=== PATIENT | male | born 1945 | race Caucasian/White ===

== ENCOUNTER 2016-09-08 15:08 | Emergency (ER) | payer MEDICARE, BC ==
[~2016-09-08] VITALS: Ht 175.3 cm; Wt 86.0 kg
[~2016-09-08 15:08] MED LIST: ESCI20TA PO; LAMO25TA PO; OXYC-392 PO; PERC7.5T13 PO; QUET1TAB7 PO; ROPI8TAB PO
[2016-09-08 15:14] VITALS: BP 130/97; PULSE 104; RESP 16; TEMP 97.5; O2SAT 96
[2016-09-08] MEDS ORDERED: OXYC-432 PO (16:04)
[2016-09-08] MEDS ORDERED: METH4TAB6 PO (16:04)
--- NOTE | 2016-09-08 16:13 | PD ---
HPI Chief Complaint: Musculoskeletal Complaint Time Seen by Provider: 16:13 Travel History International Travel<30 days: No Contact w/Intl Traveler<30days: No Traveled to known affect area: No History of Present Illness HPI 71-year-old male presents to emergency Department with back pain with radicular symptoms in the left upper leg. Patient recently underwent back surgery with discectomy performed, and prescription for methylprednisone and oxycodone 5/325. Patient states he ran out of both meds 2 days ago and has had increasing symptoms. He is unable to see his orthopedic surgeon until Saturday. He is requesting refills just for the weekend until he can get in with his orthopedic surgeon. Patient describes it as a burning pain into the left lateral thigh consistent with his previous history. His pain is 3/10 currently. Patient is allergic to penicillin. PFSH Past Medical History Anxiety: Yes Depression: Yes Diminished Hearing: No Insomnia: Yes Musculoskeletal: Yes (OLD BACK INJURY ) Respiratory: Yes (ASBESTOS BUMPS IN LUNGS PER PT) Tetanus Vaccination: < 5 Years Influenza Vaccination: Yes ?: Not Social History Alcohol Use: No (quit) Tobacco Use: No (QUIT 1976) Substance Use: No Allergies-Medications (Allergen,Severity, Reaction): Coded Allergies: Penicillin (Verified Allergy, Mild, 09/08/16) Reported Meds & Prescriptions Reported Meds & Active Scripts Active Reported Methylprednisolone 4 Mg Tab 0 PO DAILY Oxycodone-Acetaminophen 5-325 mg Tab 1 Tab PO Q6H PRN Escitalopram (Escitalopram Oxalate) 20 Mg Tab 20 Mg PO DAILY Quetiapine (Quetiapine Fumarate) 25 Mg Tab 25 Mg PO HS Lamotrigine 25 Mg Tab 75 Mg PO BID Ropinirole ER 8 Mg Tab 16 Mg PO DAILY Review of Systems Except as stated in HPI: all other systems reviewed are Neg General / Constitutional: No: Fever Eyes: No: Visual changes HENT: No: Headaches Cardiovascular: No: Chest Pain or Discomfort Respiratory: No: Shortness of Breath Gastrointestinal: No: Abdominal Pain Genitourinary: No: Dysuria Musculoskeletal: Positive: Pain Skin: No Rash Neurologic: No: Weakness Psychiatric: No: Depression Endocrine: No: Polydipsia Hematologic/Lymphatic: No: Easy Bruising Physical Exam Narrative GENERAL: Patient appears in mild distress. SKIN: Warm and dry. Normal color. Normal turgor. Well healed incision site to the L1-L2 region. HEAD: Atraumatic. Normocephalic. EYES: Pupils equal and round. No scleral icterus. No injection or drainage. ENT: No nasal bleeding or discharge. Mucous membranes pink and moist. Pharynx is clear. NECK: Trachea midline. No JVD. Neck is supple and nontender. CARDIOVASCULAR: Regular rate and rhythm. RESPIRATORY: No accessory muscle use. Clear to auscultation. Breath sounds equal bilaterally. MUSCULOSKELETAL: Extremities without clubbing, cyanosis, or edema. No obvious deformities. Patient has tenderness with palpation along the left lumbar region. Negative straight leg raise pain at this time. NEUROLOGICAL: Awake and alert. No obvious cranial nerve deficits. Motor grossly within normal limits. Five out of 5 muscle strength in the arms and legs. Normal speech. PSYCHIATRIC: Appropriate mood and affect; insight and judgment normal. Data Data Last Documented VS Vital Signs Date Time Temp Pulse Resp B/P Pulse Ox O2 Delivery O2 Flow Rate FiO2 09/08/16 15:14 97.5 104 16 130/97 96 MDM Medical Decision Making Medical Screen Exam Complete: Yes Emergency Medical Condition: Yes Differential Diagnosis Lumbago. Sciatica. Low back pain. Narrative Course Patient is medically stable at time of exam. Patient is discussed with Dr. Loja. Patient is given a prescription for prednisone 20 mg twice a day 5 days. Patient is given a refill of his Percocet 5/325 one every 6 hours #12. Patient is to follow-up with his neurosurgeon/orthopedist on Saturday as discussed. Diagnosis Primary Impression: Back pain with left-sided radiculopathy Patient Instructions: General Instructions Additional Instructions: Patient is given a prescription for prednisone 20 mg twice a day 5 days. Patient is given a refill of his Percocet 5/325 one every 6 hours #12. Patient is to follow-up with his neurosurgeon/orthopedist on Saturday as discussed. Med/Other Pt SpecificInfo: Prescription(s) given Disposition: DISCHARGE HOME Condition: Stable Tima Al Sep 08, 2016 16:13
[2016-09-08] MEDS ORDERED: PRED20 PO (17:03)
[2016-09-08] MEDS ORDERED: PERC5TAB12 PO (17:03)
== END 2016-09-08 17:16 | disposition home or self-care (01) ==
LOC: PHED 15:08 → PHEFT 17:16
DX: M54.9 Dorsalgia, unspecified (principal)
CPT/HCPCS: 99281

== ENCOUNTER → 2016-10-23 | Outpatient (CLI) | payer MEDICARE, BC ==
[~2016-10-23] MED LIST changes: +ACYC800T PO; +BACL10TA PO; +GABA300C5 PO; +MEDR4PAK PO; +METH4TAB6 PO; -OXYC-392 PO; +OXYC-432 PO; +PERC5TAB12 PO; -PERC7.5T13 PO; +PRED20 PO; +ROPI.25 PO
--- NOTE | 2016-10-24 08:59 | RSPPFT ---
DATE OF PROCEDURE: 10/23/16 COMMENTS: VOLUMES DYNAMIC: FVC and FEV1 normal. STATIC: RV, TLC normal. FLOWS: FEV1% normal; FEF 25-75 normal. DIFFUSION: Normal. FLOW VOLUME LOOP: Normal configuration. IMPRESSION: Normal pulmonary functions with no significant obstruction or restriction and normal diffusion.
== END ==
LOC: PHRSP 08:35
PROVIDERS: ATTEND Internal Medicine
DX: R06.00 Dyspnea, unspecified (principal); R06.02 Shortness of breath; R91.1 Solitary pulmonary nodule
CPT/HCPCS: 94060; 94726; 94729

== ENCOUNTER 2016-11-18 12:45 | Emergency (ER) | payer MEDICARE, BC ==
[~2016-11-18] VITALS: Ht 175.3 cm; Wt 90.0 kg
[~2016-11-18 12:45] MED LIST changes: -ACYC800T PO; -BACL10TA PO; -GABA300C5 PO; -MEDR4PAK PO; -ROPI.25 PO
[2016-11-18 12:47] VITALS: BP 109/76; PULSE 105; RESP 19; TEMP 97.7; O2SAT 97
[2016-11-18] MEDS ORDERED: ROPI.25 PO (13:00)
--- NOTE | 2016-11-18 13:14 | PD ---
HPI Chief Complaint: Back/ Neck Pain or Injury Time Seen by Provider: 13:11 Travel History International Travel<30 days: No Contact w/Intl Traveler<30days: No Traveled to known affect area: No History of Present Illness HPI 71-year-old male presents to the emergency room for evaluation of acute on chronic low back pain that was exacerbated 3 days ago. He denies any trauma or injury. Pain is localized to the lumbar spine with radiation down the right leg. He states pain is improved with lying on his left side. It worsens with bending and standing up. Patient has taken ibuprofen without significant relief in symptoms. He had a prescription for Percocet but states it makes him nauseous so he does not take it. Patient has been seen in the emergency room multiple times for the same complaint. His neurosurgeon is Dr. Chin with him he had an appointment with 6 days ago. At that time he had no pain. Denies lower extremity paresthesias, loss of bowel or bladder control, and saddle anesthesia. Denies IV drug use, weight loss, night sweats. PFSH Past Medical History Anxiety: Yes Depression: Yes Diminished Hearing: No Insomnia: Yes Musculoskeletal: Yes (OLD BACK INJURY ) Respiratory: Yes (ASBESTOS BUMPS IN LUNGS PER PT) Seizures: Yes Tetanus Vaccination: < 5 Years Influenza Vaccination: Yes ?: Not Social History Alcohol Use: No (quit) Tobacco Use: No (QUIT 1976) Substance Use: No Allergies-Medications (Allergen,Severity, Reaction): Coded Allergies: Penicillin (Verified Allergy, Mild, 11/18/16) Reported Meds & Prescriptions Reported Meds & Active Scripts Active Baclofen 10 Mg Tab 10 Mg PO Q8HR PRN Reported Requip (Ropinirole HCl) 0.25 Mg Tab 0.25 Mg PO HS Review of Systems Except as stated in HPI: all other systems reviewed are Neg Physical Exam Narrative GENERAL: Well-developed, well-nourished male in no acute distress. Afebrile. Ambulatory with a limp. SKIN: Focused skin assessment warm/dry. No erythema or ecchymosis. HEAD: Atraumatic. Normocephalic. EYES: Pupils equal and round. No scleral icterus. No injection or drainage. NECK: Trachea midline. No JVD. CARDIOVASCULAR: Regular rate and rhythm. No murmur appreciated. RESPIRATORY: No accessory muscle use. Clear to auscultation. Breath sounds equal bilaterally. BACK: No CVA tenderness. No rash. Tenderness to palpation of the lumbar spine. Positive straight leg raise on the right. 2+ patellar and Achilles reflexes are equal bilaterally. Lower extremity strength 5/5 and equal bilaterally. NEUROLOGICAL: Awake and alert. No obvious cranial nerve deficits. Motor grossly within normal limits. Normal speech. PSYCHIATRIC: Appropriate mood and affect; insight and judgment normal. Data Data Last Documented VS Vital Signs Date Time Temp Pulse Resp B/P Pulse Ox O2 Delivery O2 Flow Rate FiO2 11/18/16 12:47 97.7 105 19 109/76 97 Orders Ketorolac Inj (Toradol Inj) (11/18/16 13:30) Orphenadrine Inj (Norflex Inj) (11/18/16 13:30) [facility] Medical Decision Making Medical Screen Exam Complete: Yes Emergency Medical Condition: Yes Medical Record Reviewed: Yes Differential Diagnosis Acute on chronic back pain versus sciatica versus muscle spasm Narrative Course 71-year-old male presents to the emergency room with acute on chronic low back pain with radiation down his right leg. Patient has been seen multiple times for similar complaint. He follows with a neurosurgeon and has had a recent MRI. He has been ambulatory. No focal neurological deficits. Achilles and patellar reflexes are 2+ and equal bilaterally. Strength 5/5 and equal in lower extremities. There is no new injury or trauma. No red flag symptoms. No indication for reimaging. Patient plans to call his neurosurgeon tomorrow for reevaluation. He was given Toradol and Norflex in the emergency room and discharged with prescription for baclofen. Narcotics were not distributed as this has become a chronic problem. He was told to follow-up with his neurosurgeon and plans to call him in the morning. He understands and agrees with plan. Diagnosis Primary Impression: Right-sided low back pain with sciatica Qualified Code: M54.41 - Chronic right-sided low back pain with right-sided sciatica Referrals: Primary Care Physician Patient Instructions: General Instructions, Sciatica (ED) Additional Instructions: Rest and drink plenty of fluids. Take baclofen as directed, as needed for pain. Take ibuprofen with food as directed, as needed for pain. Apply ice to the affected area for 20 minutes at a time, as needed for pain and swelling. Follow-up with a primary care physician. Return to the emergency room for worsening symptoms. Scripts Baclofen 10 Mg Tab10 Mg PO Q8HR PRN (MUSCLE SPASM) #15 TAB Ref 0 Prov:Lori Tomlin DO 11/18/16 Disposition: 01 DISCHARGE HOME Condition: Stable Katerina Castrejon November 18, 2016 13:14
[2016-11-18] MEDS ORDERED: BACL10TA PO (13:29)
[2016-11-18] MEDS ORDERED: ORPHENADRINE INJ 60 MG/2 ML AMP IM ONE (13:30)
[2016-11-18] MEDS ORDERED: KETOROLAC TROMETHAMINE 60 MG/2 ML (IM) VIAL IM ONE (13:30)
== END 2016-11-18 13:38 | disposition home or self-care (01) ==
LOC: PHEFT 12:45
DX: M54.41 Lumbago with sciatica, right side (principal); Z87.891 Personal history of nicotine dependence
CPT/HCPCS: 96372; 99283; J1885; J2360

== ENCOUNTER 2016-11-22 10:23 | Emergency (ER) | payer MEDICARE, BC ==
[~2016-11-22] VITALS: Ht 175.3 cm; Wt 90.1 kg
[~2016-11-22 10:23] MED LIST changes: +BACL10TA PO; -ESCI20TA PO; -LAMO25TA PO; -METH4TAB6 PO; -OXYC-432 PO; -PERC5TAB12 PO; -PRED20 PO; -QUET1TAB7 PO; +ROPI.25 PO; -ROPI8TAB PO
[2016-11-22 10:25] VITALS: BP 111/82; PULSE 103; RESP 18; TEMP 97.7; O2SAT 98
[2016-11-22] MEDS ORDERED: GABA300C5 PO (10:42)
[2016-11-22] MEDS ORDERED: MEDR4PAK PO (10:42)
[2016-11-22] MEDS ORDERED: ACYC800T PO (11:13)
--- NOTE | 2016-11-22 11:13 | PD ---
HPI Chief Complaint: Skin Problem Time Seen by Provider: 11:05 Travel History International Travel<30 days: No Contact w/Intl Traveler<30days: No Traveled to known affect area: No History of Present Illness HPI 71-year-old male presents to the emergency room for evaluation of painful rash to his right lower buttocks for the past 3 days. Patient states he has been having severe right lower back pain and was seen in the emergency room 4 days ago for that but did not notice the rash until a couple days later. At that time he was seen for back pain he received injections in the right lower buttocks and believed that the rash was due to an infection caused by injections. He states it is extremely tender to touch. Patient has had a shingles vaccination. PFSH Past Medical History Hx Anticoagulant Therapy: No Anxiety: Yes Depression: Yes Diabetes: No Diminished Hearing: No Insomnia: Yes Musculoskeletal: Yes (OLD BACK INJURY ) Respiratory: Yes (ASBESTOS BUMPS IN LUNGS PER PT) Seizures: Yes Social History Alcohol Use: No (quit) Tobacco Use: No (QUIT 1976) Substance Use: No Allergies-Medications (Allergen,Severity, Reaction): Coded Allergies: Penicillin (Verified Allergy, Mild, 11/22/16) Reported Meds & Prescriptions Reported Meds & Active Scripts Active Baclofen 10 Mg Tab 10 Mg PO Q8HR PRN Reported Medrol Dosepak (Methylprednisolone) 4 Mg Dspk 4 Mg PO DIRECTED Per Pharmacist direction Gabapentin 300 Mg Cap 300 Mg PO BID Requip (Ropinirole HCl) 0.25 Mg Tab 0.25 Mg PO HS Review of Systems Except as stated in HPI: all other systems reviewed are Neg Physical Exam Narrative GENERAL: Well-nourished, well-developed male in no acute distress. Afebrile. Ambulatory. SKIN: Focused skin assessment warm/dry. Erythematous papules and grouped vesicles in the S1 dermatomal distribution. HEAD: Normocephalic. EYES: No scleral icterus. No injection or drainage. NECK: Supple, trachea midline. No JVD or lymphadenopathy. CARDIOVASCULAR: Regular rate and rhythm without murmurs, gallops, or rubs. RESPIRATORY: Breath sounds equal bilaterally. No accessory muscle use. BACK: Nontender without obvious deformity. No CVA tenderness. Data Data Last Documented VS Vital Signs Date Time Temp Pulse Resp B/P Pulse Ox O2 Delivery O2 Flow Rate FiO2 11/22/16 10:25 97.7 103 18 111/82 98 [facility] Medical Decision Making Medical Screen Exam Complete: Yes Emergency Medical Condition: Yes Medical Record Reviewed: Yes Differential Diagnosis Shingles versus acute on chronic back pain versus abscess Narrative Course 71-year-old male presents to the emergency room for evaluation of painful rash to his right lower buttocks that started 3 days ago. He has had associated right lower back pain for which she was seen in the emergency room 4 days ago. At that time he was given injections in the area where the rash has developed. Patient was concerned he developed an infection from the injections. Physical exam reveals grouped vesicles with erythematous papules in the S1 distribution. Rash is typical of shingles. Patient will be discharged with acyclovir and told to follow up with a primary care physician or return to the emergency room for worsening symptoms. He understands and agrees to plan. Diagnosis Primary Impression: Shingles Qualified Code: B02.9 - Herpes zoster without complication Referrals: Primary Care Physician Patient Instructions: General Instructions, Shingles (ED) Additional Instructions: Rest and drink plenty of fluids. Take acyclovir as directed, until gone. Take ibuprofen with food as directed, as needed for pain. Follow-up with a primary care physician. Return to the emergency room for worsening symptoms. Disposition: 01 DISCHARGE HOME Condition: Stable Katerina Castrejon November 22, 2016 11:13
== END 2016-11-22 11:18 | disposition home or self-care (01) ==
LOC: PHEFT 10:23
DX: B02.9 Zoster without complications (principal); M54.5 Low back pain; F41.9 Anxiety disorder, unspecified; F32.9 Major depressive disorder, single episode, unspecified; Z88.0 Allergy status to penicillin; Z79.899 Other long term (current) drug therapy; Z87.891 Personal history of nicotine dependence
CPT/HCPCS: 99283

== ENCOUNTER 2017-07-28 18:31 | Emergency (ER) | payer MEDICARE, BC ==
[~2017-07-28] VITALS: Ht 160 cm; Wt 94.0 kg
[~2017-07-28 18:31] MED LIST changes: +ACYC800T PO; +GABA300C5 PO; +MEDR4PAK PO
[2017-07-28 18:34] VITALS: BP 144/65; PULSE 127; RESP 24; TEMP 100.1; O2SAT 95
[2017-07-28 19:08] VITALS: PULSE 119; RESP 20; TEMP 101.2; O2SAT 96
[2017-07-28 19:25] VITALS: BP 115/78; PULSE 113; RESP 22; TEMP 99; O2SAT 94
--- NOTE | 2017-07-28 19:32 | PD ---
HPI Chief Complaint: Cold / Flu Symptoms Time Seen by Provider: 19:28 Travel History International Travel<30 days: No Contact w/Intl Traveler<30days: No Traveled to known affect area: No History of Present Illness HPI The patient is a 72-year-old male that complains of chills at home, mild cough, he never took his temperature at home but believes he does have a fever, nasal congestion for 7 days. He does have myalgias for 5-6 days. 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 He states he has pleural thickening. PFSH Past Medical History Hx Anticoagulant Therapy: No Anxiety: Yes Depression: Yes Diabetes: No Diminished Hearing: No Insomnia: Yes Musculoskeletal: Yes (OLD BACK INJURY ) Respiratory: Yes (ASBESTOS BUMPS IN LUNGS PER PT) Seizures: Yes Social History Alcohol Use: No (quit) Tobacco Use: No (QUIT 1976) Substance Use: No Allergies-Medications (Allergen,Severity, Reaction): Coded Allergies: penicillin G (Unverified Allergy, Mild, 07/28/17) Reported Meds & Prescriptions Reported Meds & Active Scripts Active Acyclovir 800 Mg Tab 800 Mg PO 5 TIMES A DAY 7 Days Baclofen 10 Mg Tab 10 Mg PO Q8HR PRN Reported Medrol Dosepak (Methylprednisolone) 4 Mg Dspk 4 Mg PO DIRECTED Per Pharmacist direction Gabapentin 300 Mg Cap 300 Mg PO BID Requip (Ropinirole HCl) 0.25 Mg Tab 0.25 Mg PO HS Review of Systems Except as stated in HPI: all other systems reviewed are Neg Physical Exam Narrative GENERAL: The patient is alert, oriented 3 and minimal respiratory distress. His vital signs show heart rate of 127, respirations 24, oximetry 95% with temperature 100.1 SKIN: Focused skin assessment warm/dry. HEAD: Atraumatic. Normocephalic. EYES: Pupils equal and round. No scleral icterus. No injection or drainage. ENT: No nasal bleeding or discharge. Mucous membranes pink and moist. NECK: Trachea midline. No JVD. CARDIOVASCULAR: Regular rate and rhythm. No murmur appreciated. RESPIRATORY: No accessory muscle use. Clear to auscultation. Breath sounds equal bilaterally. GASTROINTESTINAL: Abdomen soft, non-tender, nondistended. Hepatic and splenic margins not palpable. MUSCULOSKELETAL: No obvious deformities. No clubbing. No cyanosis. No edema. NEUROLOGICAL: Awake and alert. No obvious cranial nerve deficits. Motor grossly within normal limits. Normal speech. PSYCHIATRIC: Appropriate mood and affect; insight and judgment normal. Data Data Last Documented VS Vital Signs Date Time Temp Pulse Resp B/P (MAP) Pulse Ox O2 Delivery O2 Flow Rate FiO2 07/28/17 19:25 113 22 94 Room Air 07/28/17 19:25 99.0 115/78 (90) Orders Orders Influenzae A/B Antigen (07/28/17 19:27) Chest, Pa & Lat (07/28/17 19:28) MDM Medical Decision Making Medical Screen Exam Complete: Yes Emergency Medical Condition: Yes Medical Record Reviewed: Yes Interpretation(s) The influenza a/B antigen is positive for flu a antigen. The chest x-ray shows mild bibasilar atelectasis, large child hernia but no acute change. Differential Diagnosis Flu syndrome, nonspecific viral syndrome, viral upper respiratory infection, pneumonia, bronchitis Narrative Course The patient has influenza A. He needs to rest, increase liquid intake and follow-up with a primary care physician this week. Diagnosis Primary Impression: Influenza A Additional Instructions: Take Tylenol/Motrin for the symptoms, rest as best you can, increase liquid intake and follow-up this week with your primary care physician. Disposition: 01 DISCHARGE HOME Condition: Stable Peter Vizcarra MD Jul 28, 2017 19:32
--- NOTE | 2017-07-28 20:21 | RADRPT ---
EXAM DATE/TIME: 07/28/2017 19:33 [facility] COMPARISON: CHEST SINGLE AP, October 22, 2014, 14:35. INDICATIONS : Fever and congestion. MEDICAL HISTORY : Asbestos exposure. SURGICAL HISTORY : None. ENCOUNTER: Initial ACUITY: 1 week PAIN SCORE: 0/10 LOCATION: Bilateral chest FINDINGS: There is trace atelectasis at both lung bases. No pleural effusion or pneumothorax. No clear reproduc ible nodule for technique. Heart size stable, within normal limits. A large hiatal hernia is present. CONCLUSION: Mild bibasilar atelectasis. Large hiatal hernia. Chaitanya Hogan MD on July 28, 2017 at 20:16 Board Certified Radiologist. This report was verified electronically.
[2017-07-28 21:00] VITALS: BP 119/80
== END 2017-07-28 21:12 | disposition home or self-care (01) ==
LOC: PHED 18:31
DX: J10.1 Influenza due to other identified influenza virus with other respiratory manifestations (principal); J92.9 Pleural plaque without asbestos; R56.9 Unspecified convulsions; J98.11 Atelectasis; Z88.0 Allergy status to penicillin
CPT/HCPCS: 71046; 87804; 99284

== ENCOUNTER 2017-09-11 13:37 | Emergency (ER) | payer MEDICARE, BC ==
[~2017-09-11] VITALS: Ht 175.3 cm; Wt 92.5 kg
[2017-09-11 13:44] VITALS: BP 137/84; PULSE 81; RESP 16; TEMP 98.4; O2SAT 97
[2017-09-11] MEDS ORDERED: TRIMSOL RIGHT EYE (14:48)
--- NOTE | 2017-09-11 14:54 | PD ---
HPI Chief Complaint: Skin Problem Time Seen by Provider: 14:24 Travel History International Travel<30 days: No Contact w/Intl Traveler<30days: No Traveled to known affect area: No History of Present Illness HPI 72-year-old male presents to the emergency room for evaluation of right eye redness and swelling that started yesterday. Patient states when he woke up this morning his eye was glued shut. He had some drainage that caused blurry vision but once the drainage cleared, so did the blurry vision. He denies any photophobia. Denies any significant pain. He had cataract surgery 5 months ago without any complications. Denies fever, chills, nausea, vomiting. PFSH Past Medical History Hx Anticoagulant Therapy: No Anxiety: Yes Depression: Yes Diabetes: No Diminished Hearing: No Insomnia: Yes Musculoskeletal: Yes (OLD BACK INJURY ) Respiratory: Yes (ASBESTOS BUMPS IN LUNGS PER PT) Seizures: Yes Tetanus Vaccination: < 5 Years Influenza Vaccination: Yes Past Surgical History Eye Surgery: Yes Social History Alcohol Use: Yes (occasional) Tobacco Use: No (QUIT 1976) Substance Use: No Allergies-Medications (Allergen,Severity, Reaction): Coded Allergies: penicillin G (Unverified Allergy, Mild, 09/11/17) Reported Meds & Prescriptions Reported Meds & Active Scripts Active Polymyxin B-Trimethoprim Opth Drops 10,000-0.1 Unit/Ml-% Soln 1 Drop RIGHT EYE Q6HR Reported Gabapentin 300 Mg Cap 300 Mg PO BID Requip (Ropinirole HCl) 0.25 Mg Tab 0.25 Mg PO HS Review of Systems Except as stated in HPI: all other systems reviewed are Neg Physical Exam Narrative GENERAL: Well-nourished, well-developed male in no acute distress. Afebrile. Ambulatory. SKIN: Focused skin assessment warm/dry. HEAD: Normocephalic. EYES: PERRL, EOMI without pain, injection or chemosis. No scleral icterus. Fluorescein staining reveals no foreign body, corneal abrasion, or ulceration. Negative Sravanthi sign. Negative Sravanthi sign. Visual acuity is 20/40 in the right. Patient is blind in the left eye. There is a mildly swollen and erythematous hordeolum to the right lower, lateral lid. On lower lid eversion, there is very small amount of purulent drainage coming from the opening of the hordeolum. NECK: Supple, trachea midline. No JVD or lymphadenopathy. CARDIOVASCULAR: Regular rate and rhythm without murmurs, gallops, or rubs. RESPIRATORY: Breath sounds equal bilaterally. No accessory muscle use. GASTROINTESTINAL: Abdomen soft, non-tender, nondistended. MUSCULOSKELETAL: No cyanosis, or edema. BACK: Nontender without obvious deformity. No CVA tenderness. Data Data Last Documented VS Vital Signs Date Time Temp Pulse Resp B/P (MAP) Pulse Ox O2 Delivery O2 Flow Rate FiO2 09/11/17 13:44 98.4 81 16 137/84 (101) 97 MDM Medical Decision Making Medical Screen Exam Complete: Yes Emergency Medical Condition: Yes Medical Record Reviewed: Yes Differential Diagnosis Hordeolum, chalazion, corneal abrasion Narrative Course 72-year-old male presents to the emergency room for evaluation of a red swollen lower lid that started yesterday. He woke up with some drainage in the right eye but has had tearing since then. Patient denies any changes in visual acuity , photophobia, fever, chills, pain, or significant drainage. Physical exam is reassuring. There is no injection or ecchymosis. EOMI without pain. Fluorescein staining is unremarkable. Visual acuity is 20/40 in the affected eye. He is blind in the left eye. There is a small hordeolum in the right lower lid without significant surrounding erythema. Upon eversion of the lower lid, the hordeolum began to drain purulent discharge. This was removed from the patient's eye and there is moderate decrease in the swelling. Patient discharged with prescription for eyedrops and told to follow-up with primary care physician or return for worsening symptoms. He understands and agrees to plan. Diagnosis Primary Impression: Hordeolum external Qualified Codes: H00.012 - Hordeolum externum right lower eyelid Referrals: Primary Care Physician Additional Instructions: Eyedrops as directed. Follow-up with a primary care physician and/or grocery caddy. Return for worsening symptoms. Med/Other Pt SpecificInfo: Prescription(s) given Scripts Polymyxin B-Trimethoprim Opth Drops (Polymyxin B-Trimethoprim Opth Drops) 10,000 -0.1 Unit/Ml-% Soln 1 DROP RIGHT EYE Q6HR for Mgmt Bacterial Infection, #1 BOTTLE 0 Refills Prov: Valeri Kelly MD 09/11/17 Disposition: 01 DISCHARGE HOME Condition: Stable Katerina Castrejon Sep 11, 2017 14:54
== END 2017-09-11 15:01 | disposition home or self-care (01) ==
LOC: PHEFT 13:37
DX: H00.012 Hordeolum externum right lower eyelid (principal); F41.9 Anxiety disorder, unspecified; F32.9 Major depressive disorder, single episode, unspecified; Z88.0 Allergy status to penicillin; Z87.891 Personal history of nicotine dependence; Z79.899 Other long term (current) drug therapy
CPT/HCPCS: 99283

== ENCOUNTER 2017-12-04 11:01 | Emergency (ER) | payer MEDICARE, BC ==
[~2017-12-04] VITALS: Ht 175.3 cm; Wt 96.0 kg
[~2017-12-04 11:01] MED LIST changes: -ACYC800T PO; -BACL10TA PO; -MEDR4PAK PO; +TRIMSOL RIGHT EYE
[2017-12-04 11:10] VITALS: BP 130/81; PULSE 88; RESP 19; TEMP 98; O2SAT 95
[2017-12-04] MEDS ORDERED: SODIUM CHLORIDE 0.9% FLUSH 10 ML FLUSH IVF PRN (11:45)
--- NOTE | 2017-12-04 11:50 | PD ---
HPI Chief Complaint: Respiratory Symptoms Time Seen by Provider: 11:32 Travel History International Travel<30 days: No Contact w/Intl Traveler<30days: No Traveled to known affect area: No History of Present Illness HPI Patient is a 72-year-old male with history of asbestos to his lungs, as well as pulmonary fibrosis, currently follows with Dr. Johnathan Angelo his licensed weigher, presents the emergency room with complaints of shortness of breath. Patient reports that he has been feeling short of breath at nighttime for the past month. Patient reports that he is unable to lay down flat due to the shortness of breath. Patient reports that he has an appointment with his licensed weigher today for evaluation of this at 2:30 PM, reports that he felt that he cannot wait for for this appointment so he came to the emergency room for evaluation. Patient denies dyspnea on exertion, reports that he currently is not short of breath. Patient denies any chest pain, denies any cough or congestion, denies any fever chills, patient with no other complaints at this time. PFSH Past Medical History Hx Anticoagulant Therapy: No Anxiety: Yes Depression: Yes Diabetes: No Diminished Hearing: No Insomnia: Yes Musculoskeletal: Yes (OLD BACK INJURY ) Respiratory: Yes (ASBESTOS BUMPS IN LUNGS PER PT) Seizures: Yes Influenza Vaccination: Yes Past Surgical History Eye Surgery: Yes Social History Alcohol Use: No Tobacco Use: No (QUIT 1976) Substance Use: No Allergies-Medications (Allergen,Severity, Reaction): Coded Allergies: penicillin G (Unverified Allergy, Mild, 12/04/17) Reported Meds & Prescriptions Reported Meds & Active Scripts Active Polymyxin B-Trimethoprim Opth Drops 10,000-0.1 Unit/Ml-% Soln 1 Drop RIGHT EYE Q6HR Reported Gabapentin 300 Mg Cap 300 Mg PO BID Requip (Ropinirole HCl) 0.25 Mg Tab 0.25 Mg PO HS Review of Systems General / Constitutional: No: Fever Eyes: No: Visual changes HENT: No: Headaches Cardiovascular: No: Chest Pain or Discomfort, Palpitations Respiratory: Positive: Shortness of Breath, No: Cough Gastrointestinal: No: Abdominal Pain Genitourinary: No: Dysuria Musculoskeletal: No: Pain Skin: No Rash Neurologic: No: Weakness Psychiatric: No: Depression Endocrine: No: Polydipsia Hematologic/Lymphatic: No: Easy Bruising Physical Exam Narrative GENERAL: NAD SKIN: Focused skin assessment warm/dry. HEAD: Atraumatic. Normocephalic. EYES: Pupils equal and round. No scleral icterus. No injection or drainage. ENT: No nasal bleeding or discharge. Mucous membranes pink and moist. NECK: Trachea midline. No JVD. CARDIOVASCULAR: Regular rate and rhythm. No murmur appreciated. RESPIRATORY: No accessory muscle use. Clear to auscultation. Breath sounds equal bilaterally. GASTROINTESTINAL: Abdomen soft, non-tender, nondistended. Hepatic and splenic margins not palpable. MUSCULOSKELETAL: No obvious deformities. No clubbing. No cyanosis. No edema. NEUROLOGICAL: Awake and alert. No obvious cranial nerve deficits. Motor grossly within normal limits. Normal speech. PSYCHIATRIC: Appropriate mood and affect; insight and judgment normal. Data Data Last Documented VS Vital Signs Date Time Temp Pulse Resp B/P (MAP) Pulse Ox O2 Delivery O2 Flow Rate FiO2 12/04/17 12:18 24 96 Room Air 12/04/17 11:10 98.0 88 130/81 (97) Orders Orders Electrocardiogram (12/04/17 11:42) B-Type Natriuretic Peptide (12/04/17 11:42) Ckmb (Isoenzyme) Profile (12/04/17 11:42) Complete Blood Count With Diff (12/04/17 11:42) Comprehensive Metabolic Panel (12/04/17 11:42) Magnesium (Mg) (12/04/17 11:42) Prothrombin Time / Inr (Pt) (12/04/17 11:42) Act Partial Throm Time (Ptt) (12/04/17 11:42) Troponin I (12/04/17 11:42) Ecg Monitoring (12/04/17 11:42) Iv Access Insert/Monitor (12/04/17 11:42) Oximetry (12/04/17 11:42) Sodium Chloride 0.9% Flush (Ns Flush) (12/04/17 11:45) Chest, Pa & Lat (12/04/17 11:42) CKMB (12/04/17 11:58) CKMB% (12/04/17 11:58) Ed Discharge Order (12/04/17 13:21) Labs Laboratory Tests Test 12/04/17 11:58 White Blood Count 6.8 TH/MM3 Red Blood Count 4.83 MIL/MM3 Hemoglobin 13.5 GM/DL Hematocrit 40.6 % Mean Corpuscular Volume 84.1 FL Mean Corpuscular Hemoglobin 27.9 PG Mean Corpuscular Hemoglobin Concent 33.2 % Red Cell Distribution Width 14.6 % Platelet Count 275 TH/MM3 Mean Platelet Volume 8.4 FL Neutrophils (%) (Auto) 60.9 % Lymphocytes (%) (Auto) 25.0 % Monocytes (%) (Auto) 11.2 % Eosinophils (%) (Auto) 2.5 % Basophils (%) (Auto) 0.4 % Neutrophils # (Auto) 4.1 TH/MM3 Lymphocytes # (Auto) 1.7 TH/MM3 Monocytes # (Auto) 0.8 TH/MM3 Eosinophils # (Auto) 0.2 TH/MM3 Basophils # (Auto) 0.0 TH/MM3 CBC Comment DIFF FINAL Differential Comment Prothrombin Time 10.5 SEC Prothromb Time International Ratio 1.0 RATIO Activated Partial Thromboplast Time 24.5 SEC Blood Urea Nitrogen 13 MG/DL Creatinine 1.10 MG/DL Random Glucose 105 MG/DL Total Protein 7.6 GM/DL Albumin 4.0 GM/DL Calcium Level 8.8 MG/DL Magnesium Level 2.5 MG/DL Alkaline Phosphatase 65 U/L Aspartate Amino Transf (AST/SGOT) 21 U/L Alanine Aminotransferase (ALT/SGPT) 29 U/L Total Bilirubin 0.4 MG/DL Sodium Level 140 MEQ/L Potassium Level 4.4 MEQ/L Chloride Level 110 MEQ/L Carbon Dioxide Level 24.4 MEQ/L Anion Gap 6 MEQ/L Estimat Glomerular Filtration Rate 66 ML/MIN Total Creatine Kinase 525 U/L Creatine Kinase MB 6.5 NG/ML Creatine Kinase MB % 1.2 % Troponin I LESS THAN 0.02 NG/ML B-Type Natriuretic Peptide 42 PG/ML MDM Medical Decision Making Medical Screen Exam Complete: Yes Emergency Medical Condition: Yes Medical Record Reviewed: Yes Interpretation(s) EKG at 1201: NSR at 73bpm, qt/qtc: 358/384, no acute st or t wave changes Vital Signs Date Time Temp Pulse Resp B/P (MAP) Pulse Ox O2 Delivery O2 Flow Rate FiO2 12/04/17 11:10 98.0 88 19 130/81 (97) 95 Differential Diagnosis PE, pulmonary fibrosis, pneumothorax, ACS, arrhythmia, pneumonia, CHF Narrative Course Patient is a 72-year-old male who presents the emergency room for evaluation of shortness of breath, patient reports that he has shortness of breath only at nighttime when he lays down to go to sleep. Reports that he does follow with Dr. Angelo for his symptoms and he does have an appointment at 230pm with Dr. Angelo. Reports that he is asymptomatic at this time During the course of the patients emergency department visit, the patients history, examination, and differential diagnosis were reviewed with the patient. The patient was placed on a environmental monitoring technician with oximetry and frequent blood pressure monitoring. The patient had an IV access obtained and blood work sent for analysis. The patients laboratory studies were reviewed and remarkable for CBC & BMP Diagram 12/04/17 11:58 Total Protein 7.6, Albumin 4.0, Calcium Level 8.8, Magnesium Level 2.5, Alkaline Phosphatase 65, Aspartate Amino Transf (AST/SGOT) 21, Alanine Aminotransferase (ALT/SGPT) 29, Total Bilirubin 0.4 trop 0.02 bnp: 42 Radiology studies were reviewed and remarkable for: Chest x-ray with no acute abnormalities or significant interval change. Patient's labs as well as studies are unremarkable, patient is not tachypnea, vital signs are stable. Patient is not hypoxic, patient only symptomatic while laying down, patient with no evidence of heart failure. Patient with no chest pain at this time or during his symptoms. Patient with no acute reasons for his shortness of breath, he does have underlying lung disease, symptoms have been ongoing for the past month, patient at this time suffers no emergency which requires admission to the hospital. Patient can be safely discharged to home with outpatient follow-up at this time. Vital Signs Date Time Temp Pulse Resp B/P (MAP) Pulse Ox O2 Delivery O2 Flow Rate FiO2 12/04/17 12:18 24 96 Room Air 12/04/17 11:10 98.0 88 19 130/81 (97) 95 I did review case with his licensed weigher, Dr. Johnathan Angelo, patient with chronic lung disease, workup is benign. Plan to discharge him to have him follow-up with his licensed weigher at 2:30pm today. Diagnosis Primary Impression: Shortness of breath Patient Instructions: General Instructions Additional Instructions: Please provide patient with a copy of their lab work and studies at discharge* * Please follow up with your primary care doctor in 2-3 days Return to the ER if symptoms worsen or progress Return to the ER as needed Please follow-up with your licensed weigher, Dr. Angelo at 2:30pm as scheduled Disposition: 01 DISCHARGE HOME Condition: Stable Lori Tomlin DO December 04, 2017 11:50
[2017-12-04 12:04] LABS: AUTOMATED NEUTROPHIL # 4.1 TH/MM3 (1.8-7.7); BASOPHIL % 0.4 % (0.0-2.0); EOSINOPHIL # 0.2 TH/MM3 (0-0.4); EOSINOPHIL % 2.5 % (0.0-4.0); HEMATOCRIT 40.6 % (39.0-51.0); HEMOGLOBIN 13.5 GM/DL (13.0-17.0); LYMPHOCYTE # 1.7 TH/MM3 (1.0-4.8); MEAN CELL VOLUME 84.1 FL (80.0-100.0); MEAN CORPUSCULAR HEMOGLOBIN 27.9 PG (27.0-34.0); MEAN CORPUSCULAR HGB CONC 33.2 % (32.0-36.0); MEAN PLATELET VOLUME 8.4 FL (7.0-11.0); MONO % 11.2 % (0.0-8.0); MONOCYTE # 0.8 TH/MM3 (0-0.9); NEUT % 60.9 % (16.0-70.0); PLATELET COUNT 275 TH/MM3 (150-450); RED BLOOD COUNT 4.83 MIL/MM3 (4.50-5.90); RED CELL DISTRIBUTION WIDTH 14.6 % (11.6-17.2); WHITE BLOOD COUNT 6.8 TH/MM3 (4.0-11.0)
[2017-12-04 12:10] LABS: CHLORIDE 110 MEQ/L (98-107); SODIUM (NA) 140 MEQ/L (136-145)
[2017-12-04 12:13] LABS: CALCIUM 8.8 MG/DL (8.5-10.1)
[2017-12-04 12:14] LABS: BICARBONATE 24.4 MEQ/L (21.0-32.0); BLOOD UREA NITROGEN 13 MG/DL (7-18); GLUCOSE,RANDOM 105 MG/DL (74-106); MAGNESIUM 2.5 MG/DL (1.5-2.5)
[2017-12-04 12:16] LABS: ALT (GPT) 29 U/L (12-78)
[2017-12-04 12:17] LABS: AST (GOT) 21 U/L (15-37); GLOMERULAR FILTRATION RATE 66 ML/MIN (>89)
[2017-12-04 12:18] LABS: TOTAL BILIRUBIN ADULT 0.4 MG/DL (0.2-1.0); TOTAL PROTEIN 7.6 GM/DL (6.4-8.2)
[2017-12-04 12:20] LABS: ALKALINE PHOSPHATASE 65 U/L (45-117)
[2017-12-04 12:22] LABS: TROPONIN I LESS THAN 0.02 NG/ML (0.02-0.05)
[2017-12-04 12:24] LABS: PROTHROMBIN TIME - PATIENT 10.5 SEC (9.8-11.6)
--- NOTE | 2017-12-04 12:37 | RADRPT ---
EXAM DATE: 12/04/2017 12:32 PM EDT AGE/SEX: 72 years / Male INDICATIONS: Short of breath CLINICAL DATA: This is the patient's initial encounter. Patient reports that signs and symptoms have been present for 1 month and indicates a pain score of 0/10. MEDICAL/SURGICAL HISTORY: . Asbestos None. COMPARISON: [facility], CHEST PA & LAT, 07/28/2017. . FINDINGS: No new focal pleural or parenchymal opacities. Redemonstration of moderate hiatal hernia. Cardiomedia stinal contours are stable. Cement augmentation changes at L1. Osseous structures are intact. CONCLUSION: 1. No acute abnormality or significant interval change. Electronically signed by: Richi Witt MD 12/04/2017 12:35 PM EDT
[2017-12-04 13:43] VITALS: BP 137/84
[2017-12-04 13:48] VITALS: O2SAT 97
--- NOTE | 2017-12-06 08:32 | EKG ---
Date Performed: 12/04/2017 Time Performed: 12:01:56 PTAGE: 72 years EKG: Sinus rhythm NORMAL ECG NO PREVIOUS TRACING DOCTOR: Fortunato Pickens Interpretating Date/Time 12/06/2017 08:20:00
== END 2017-12-04 13:49 | disposition home or self-care (01) ==
LOC: PHED 11:01
DX: R06.02 Shortness of breath (principal); G40.909 Epilepsy, unspecified, not intractable, without status epilepticus; Z79.899 Other long term (current) drug therapy; Z87.39 Personal history of other diseases of the musculoskeletal system and connective tissue; Z87.09 Personal history of other diseases of the respiratory system; Z86.59 Personal history of other mental and behavioral disorders
CPT/HCPCS: 71046; 80053; 82550; 82552; 83735; 83880; 84484; 85025; 85610; 85730; 93005; 99285

== ENCOUNTER 2017-12-23 14:17 | Emergency (ER) | payer MEDICARE, BC ==
[2017-12-23 14:25] VITALS: BP 145/86; PULSE 96; RESP 18; TEMP 97.9; O2SAT 95
[2017-12-23] MEDS ORDERED: CLON.5 PO (14:35)
[2017-12-23] MEDS ORDERED: SODIUM CHLORIDE 0.9% FLUSH 10 ML FLUSH IVF PRN (15:15)
[2017-12-23 15:17] VITALS: O2SAT 95
[2017-12-23 15:22] LABS: AUTOMATED NEUTROPHIL # 4.6 TH/MM3 (1.8-7.7); BASOPHIL % 0.6 % (0.0-2.0); EOSINOPHIL # 0.2 TH/MM3 (0-0.4); EOSINOPHIL % 2.9 % (0.0-4.0); HEMATOCRIT 41.3 % (39.0-51.0); HEMOGLOBIN 14.1 GM/DL (13.0-17.0); LYMPHOCYTE # 2.3 TH/MM3 (1.0-4.8); MEAN CELL VOLUME 86.5 FL (80.0-100.0); MEAN CORPUSCULAR HEMOGLOBIN 29.6 PG (27.0-34.0); MEAN CORPUSCULAR HGB CONC 34.2 % (32.0-36.0); MEAN PLATELET VOLUME 8.4 FL (7.0-11.0); MONO % 12.5 % (0.0-8.0); PLATELET COUNT 266 TH/MM3 (150-450); RED BLOOD COUNT 4.78 MIL/MM3 (4.50-5.90); RED CELL DISTRIBUTION WIDTH 15.9 % (11.6-17.2); WHITE BLOOD COUNT 8.1 TH/MM3 (4.0-11.0)
[2017-12-23 15:39] LABS: PROTHROMBIN TIME - PATIENT 10.3 SEC (9.8-11.6)
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
[2017-12-23] MEDS ORDERED: IOHEXOL 350 MG/ML 10 ML VIAL (for RAD DIAG) IVCONTRAST ONE (16:06)
--- NOTE | 2017-12-23 16:21 | RADRPT ---
EXAM DATE: 12/23/2017 4:13 PM EDT AGE/SEX: 72 years / Male INDICATIONS: Shortness of breath. CLINICAL DATA: This is the patient's initial encounter. Patient reports that signs and symptoms have been present for 1 day and indicates a pain score of 0/10. MEDICAL/SURGICAL HISTORY: None. None. RADIATION DOSE: 19.99 CTDI (mGy) COMPARISON: No prior exams available for comparison. TECHNIQUE: Volumetric scanning was performed using a multi-row detector CT scanner during bolus infu reggie of 70 ml Omnipaque 350 (iohexol) nonionic water-soluble contrast as a single exam dose. The mine a was post processed with a variety of visualization algorithms including full volume maximum intensi ty projection and sliding thin slab reformation. Using automated exposure control and adjustment of the mA and/or kV according to patient size, radiation dose was kept as low as reasonably achievable t o obtain optimal diagnostic quality images. FINDINGS: The examination is of good diagnostic quality. No pulmonary embolus is identified. The heart is normal in size. There is no significant hilar, mediastinal or axillary adenopathy. There is atherosclerotic plaquing in the coronary arteries. No pericardial effusion is evident. Imaging through the pulmonary parenchyma demonstrates scattered areas of thickened pleura with calcif ied pleural plaquing. There are COPD changes within the pulmonary parenchyma. No pleural effusion is evident. Note is made of a sizable hiatal hernia. The limited portion of upper abdomen visualized is unremarkable. CONCLUSION: 1. No pulmonary embolus identified. 2. COPD changes with calcified pleural plaquing. 3. Sizable hiatal hernia. 4. Atherosclerotic plaquing in the coronary arteries. Electronically signed by: Maldonado Jernigan MD 12/23/2017 4:19 PM EDT
--- NOTE | 2017-12-23 16:22 | RADRPT ---
EXAM DATE: 12/23/2017 4:06 PM EDT AGE/SEX: 72 years / Male INDICATIONS: Right leg swelling. CLINICAL DATA: This is the patient's initial encounter. Patient reports that signs and symptoms have been present for 1 day and indicates a pain score of 0/10. MEDICAL/SURGICAL HISTORY: . Legally blind in left eye. Seizures. Hyperlipidemia. Asbestos bumps in lungs. Insomnia. . Back surgery. COMPARISON: No prior exams available for comparison. TECHNIQUE: Venous ultrasound of both lower extremities was performed from the inguinal ligament to t he proximal calf. Real-time, color Doppler and spectral tracing, compression and augmentation techni ques were used. FINDINGS: There is normal compressibility of the deep venous system from the inguinal region to the proximal ca lf. No echogenic clot is seen in the lumen of the common femoral, femoral, popliteal, and posterior tibial veins. There is a normal response of the venous system to proximal and distal augmentation an d respiration. CONCLUSION: 1. No evidence of deep venous thrombosis within the right lower extremity. Electronically signed by: Warner Cheung MD 12/23/2017 4:20 PM EDT
[2017-12-23 16:35] LABS: ALBUMIN 3.7 GM/DL (3.4-5.0); AST (GOT) 16 U/L (15-37); BICARBONATE 24.6 MEQ/L (21.0-32.0); BLOOD UREA NITROGEN 14 MG/DL (7-18); CALCIUM 8.3 MG/DL (8.5-10.1); CHLORIDE 110 MEQ/L (98-107); CREATININE 1.12 MG/DL (0.60-1.30); GLOMERULAR FILTRATION RATE 64 ML/MIN (>89); GLUCOSE,RANDOM 94 MG/DL (74-106); MAGNESIUM 2.2 MG/DL (1.5-2.5); SODIUM (NA) 143 MEQ/L (136-145)
[2017-12-23 16:40] LABS: ALKALINE PHOSPHATASE 58 U/L (45-117); ALT (GPT) 26 U/L (12-78); TOTAL BILIRUBIN ADULT 0.3 MG/DL (0.2-1.0); TOTAL PROTEIN 7.4 GM/DL (6.4-8.2); TROPONIN I LESS THAN 0.02 NG/ML (0.02-0.05)
[2017-12-23] MEDS ORDERED: ALBUAER3 INH (16:59)
[2017-12-23 17:02] VITALS: BP 131/90; PULSE 80; RESP 16; O2SAT 94
--- NOTE | 2017-12-23 21:51 | EKG ---
Date Performed: 12/23/2017 Time Performed: 15:16:18 PTAGE: 72 years EKG: Baseline artifact present Sinus rhythm NORMAL ECG No significant change from prior electrocardiogram. PREVIOUS TRACING : 12/04/2017 12.01 DOCTOR: Tenzin Camacho Interpretating Date/Time 12/23/2017 21:50:25
== END 2017-12-23 17:16 | disposition home or self-care (01) ==
LOC: PHED 14:17
DX: S46.912A Strain of unspecified muscle, fascia and tendon at shoulder and upper arm level, left arm, initial encounter (principal); R53.1 Weakness; R06.02 Shortness of breath; J44.9 Chronic obstructive pulmonary disease, unspecified; K44.9 Diaphragmatic hernia without obstruction or gangrene; F41.9 Anxiety disorder, unspecified; F32.9 Major depressive disorder, single episode, unspecified; G47.00 Insomnia, unspecified; V17.4XXA Pedal cycle driver injured in collision with fixed or stationary object in traffic accident, initial encounter
CPT/HCPCS: 71275; 73030; 80053; 82550; 82552; 83735; 84484; 85025; 85610; 85730; 93005; 93971; 99285; Q9967; 80048